=== PATIENT | female | born 2000 | race Native Hawaiian/Other Pacific Islander ===

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

== ENCOUNTER 2020-02-09 20:41 | Emergency (ER) | payer BC ==
[~2020-02-09] VITALS: Ht 162.6 cm; Wt 117.0 kg
[2020-02-09 21:53] LABS: PLATELET COUNT 370 K/uL (152-353)
[2020-02-09 23:08] VITALS: BP 138/82; TEMP 97.8
== END 2020-02-09 23:08 | disposition home or self-care (01) ==
LOC: ED 20:41
PROVIDERS: Family Medicine
DX: R11.2 Nausea with vomiting, unspecified (principal); K21.9 Gastro-esophageal reflux disease without esophagitis
CPT/HCPCS: 80053; 85027; 96360; 96365; 96366; 96375; 99284; J0696; J1885; J2405; J3490

== ENCOUNTER 2020-06-29 08:34 | Outpatient (CLI) | payer BC | END 2020-06-29 20:33 | disposition home or self-care (01) | LOC: NM 08:34 | DX: R11.0 Nausea (principal) | CPT/HCPCS: A9541 ==

== ENCOUNTER 2022-11-09 19:29 | Emergency (ER) | payer OTHER ==
[~2022-11-09] VITALS: Ht 162.6 cm; Wt 127.9 kg
[2022-11-09 22:30] LABS: PLATELET COUNT 363 K/uL (152-353)
[2022-11-09 23:36] VITALS: BP 132/80; TEMP 98.7
== END 2022-11-09 23:26 | disposition home or self-care (01) ==
LOC: ED 19:29
PROVIDERS: Family Medicine
DX: N39.0 Urinary tract infection, site not specified (principal)
CPT/HCPCS: 36415; 81002; 85027; 99283

== ENCOUNTER 2022-11-13 16:55 | Emergency (ER) | payer OTHER ==
[~2022-11-13] VITALS: Ht 162.6 cm; Wt 113.4 kg
[2022-11-13 17:37] LABS: PLATELET COUNT 334 K/uL (152-353)
[2022-11-13 17:54] LABS: POTASSIUM 3.9 mmol/L (3.6-5.2)
[2022-11-13 20:50] VITALS: BP 115/62; TEMP 97.4
== END 2022-11-13 20:50 | disposition home or self-care (01) ==
LOC: ED 16:55
PROVIDERS: Emergency Medicine
DX: N39.0 Urinary tract infection, site not specified (principal)
CPT/HCPCS: 80053; 81000; 81025; 85027; 87088; 96360; 96361; 96372; 96374; 96375; 99284; J0696; J2270; J2405